=== PATIENT | male | born 1990 | race Hispanic/Latino ===

== ENCOUNTER 2025-06-26 14:08 | Emergency (ER) | payer SELFPAY ==
[2025-06-26] VITALS (11 sets, daily range): BP systolic 135–175; BP diastolic 69–99; PULSE 76–103; RESP 15–26; TEMP 36.6; O2SAT 97; BMI 25.8
--- NOTE | 2025-06-26 14:13 | ED_ITS ---
HPI - Extremity Injury (Upper) <Tyree Sherman MD - Last Filed: 06/26/25 15:19> General Chief Complaint: Trauma Stated Complaint: mod trauma hand vs table saw Time Seen by Provider: 06/26/25 15:02 History of Present Illness HPI narrative: This is a 34-year-old man who arrives as a modified trauma. He had a table saw injury to his left hand. Patient is right-handed previously healthy does not know when his last tetanus booster was. He has no allergies to medications and takes no regular medications. Injury occurred immediately prior to arrival. He was cutting gonzález a table saw. Injury involves his thumb index long and ring fingers. Last oral intake was at 12:30 p.m., he tells me that he does not have any sensation in his long finger. Related Data Allergies Allergy/AdvReac Type Severity Reaction Status Date / Time No Known Drug Allergies Allergy Verified 06/26/25 15:16 Review of Systems <Ba Eden MD - Last Filed: 07/08/25 08:25> Review of Systems Narrative: GENERAL: Negative chills, fatigue, malaise, fever, sweats. HEENT: Negative sinus pain, ear pain, sore throat RESPIRATORY: Negative dyspnea, cough CARDIOVASCULAR: Negative chest pain, palpitations GASTROINTESTINAL: Negative vomiting, nausea, abdominal pain : Negative dysuria, frequency, hematuria MUSCULOSKELETAL: Positive muscle or bony pain SKIN: Negative rash, skin lesions, positive skin wound NEUROLOGIC: Negative weakness, numbness ROS Unobtainable: All systems reviewed & are unremarkable except as noted in HPI and below Exam <Tyree Sherman MD - Last Filed: 06/26/25 15:19> Initial Vital Signs Initial Vital Signs: Vital Signs Temperature 97.9 F 06/26/25 14:10 Pulse Rate 98 H 06/26/25 14:10 Respiratory Rate 16 06/26/25 14:10 Blood Pressure 175/99 H 06/26/25 14:10 Pulse Oximetry 97 06/26/25 14:10 Oxygen Delivery Method Room Air 06/26/25 14:10 Patient arrives alert and oriented in obvious painful distress. Dressings were taken down off of his left hand there is moderate bleeding. There is a laceration crossing the ulnar aspect of the volar thumb tip. It is DP has intact light touch sensation and flexion-extension There is a laceration crossing the volar aspect of the index finger over the proximal phalanx. He has intact capillary refill light touch sensation flexion and extension. There is a laceration that is deep crossing the volar aspect at the proximal phalanx of his middle finger. It extends through the bone, there is visible tendon and bone on both sides of the laceration. He does not have light touch sensation in the long finger and he does not have flexion of the long finger. There is a laceration crossing the volar aspect of the ring finger. It is primarily on the ulnar side. He has intact capillary refill flexion-extension. <Ba Eden MD - Last Filed: 07/08/25 08:25> Initial Vital Signs Initial Vital Signs: Vital Signs Temperature 97.9 F 06/26/25 14:10 Pulse Rate 98 H 06/26/25 14:10 Respiratory Rate 16 06/26/25 14:10 Blood Pressure 175/99 H 06/26/25 14:10 Pulse Oximetry 97 06/26/25 14:10 Oxygen Delivery Method Room Air 06/26/25 14:10 Course <Tyree Sherman MD - Last Filed: 06/26/25 15:19> Orders Ordered: Discontinued Medications Bacitracin (Bacitracin Oint 0.9 Gm Pckt) 3 applic TOP NOW STA Stop: 06/26/25 17:45 Last Admin: 06/26/25 18:19 Dose: 3 applic Documented By: DARIAN Diphtheria/Tetanus/Acell Pertussis (Tet,Diph,Pertuss(Acell),Vac/Pf 0.5 Ml Syringe) 0.5 ml IM .ONCE ONE Stop: 06/26/25 14:14 Last Admin: 06/26/25 14:18 Dose: 0.5 ml Documented By: DARIAN Hydromorphone HCl (Hydromorphone 1 Mg/Ml Syringe) 1 mg IV NOW ONE Stop: 06/26/25 14:12 Last Admin: 06/26/25 14:20 Dose: 1 mg Documented By: DARIAN Hydromorphone HCl (Hydromorphone 1 Mg/Ml Syringe) 1 mg IV NOW ONE Stop: 06/26/25 14:50 Last Admin: 06/26/25 14:54 Dose: 1 mg Documented By: DARIAN(2) Hydromorphone HCl (Hydromorphone 1 Mg/Ml Syringe) 1 mg IV NOW ONE Stop: 06/26/25 17:29 Last Admin: 06/26/25 17:33 Dose: 1 mg Documented By: DARIAN Cefazolin Sodium 1 gm/ Sodium (Chloride) 100 mls @ 200 mls/hr IV NOW ONE Stop: 06/26/25 14:40 Last Infusion: 06/26/25 15:15 Dose: Infused Documented By: Admin: 06/26/25 14:19 Dose: 200 mls/hr Documented By: DARIAN Reevaluation(s) Reevaluation #1: At 3:00 p.m., care is transferred to Dr. Eden, we have calls out for transfer to a hand surgeon Vital Signs Vital signs: Vital Signs - 8 hr 06/26/25 14:10 06/26/25 14:21 06/26/25 14:30 Temperature 97.9 F Pulse Rate 98 H 86 101 H Respiratory Rate 16 16 16 Blood Pressure 175/99 H Pulse Oximetry 97 Oxygen Delivery Method Room Air 06/26/25 15:00 06/26/25 15:30 06/26/25 16:00 Temperature Pulse Rate 82 82 77 Respiratory Rate 22 26 H 15 Blood Pressure Pulse Oximetry Oxygen Delivery Method 06/26/25 16:26 06/26/25 16:26 06/26/25 16:30 Temperature Pulse Rate 76 Respiratory Rate 17 Blood Pressure 135/69 136/75 Pulse Oximetry Oxygen Delivery Method 06/26/25 16:30 06/26/25 17:00 06/26/25 17:00 Temperature Pulse Rate 89 93 H Respiratory Rate 23 17 Blood Pressure 147/84 H Pulse Oximetry Oxygen Delivery Method <Ba Eden MD - Last Filed: 07/08/25 08:25> Orders Ordered: Discontinued Medications Bacitracin (Bacitracin Oint 0.9 Gm Pckt) 3 applic TOP NOW STA Stop: 06/26/25 17:45 Last Admin: 06/26/25 18:19 Dose: 3 applic Documented By: DARIAN Diphtheria/Tetanus/Acell Pertussis (Tet,Diph,Pertuss(Acell),Vac/Pf 0.5 Ml Syringe) 0.5 ml IM .ONCE ONE Stop: 06/26/25 14:14 Last Admin: 06/26/25 14:18 Dose: 0.5 ml Documented By: DARIAN Hydromorphone HCl (Hydromorphone 1 Mg/Ml Syringe) 1 mg IV NOW ONE Stop: 06/26/25 14:12 Last Admin: 06/26/25 14:20 Dose: 1 mg Documented By: DARIAN Hydromorphone HCl (Hydromorphone 1 Mg/Ml Syringe) 1 mg IV NOW ONE Stop: 06/26/25 14:50 Last Admin: 06/26/25 14:54 Dose: 1 mg Documented By: DARIAN(2) Hydromorphone HCl (Hydromorphone 1 Mg/Ml Syringe) 1 mg IV NOW ONE Stop: 06/26/25 17:29 Last Admin: 06/26/25 17:33 Dose: 1 mg Documented By: DARIAN Cefazolin Sodium 1 gm/ Sodium (Chloride) 100 mls @ 200 mls/hr IV NOW ONE Stop: 06/26/25 14:40 Last Infusion: 06/26/25 15:15 Dose: Infused Documented By: Admin: 06/26/25 14:19 Dose: 200 mls/hr Documented By: DARIAN Vital Signs Vital signs: Vital Signs - 8 hr 06/26/25 14:10 06/26/25 14:21 06/26/25 14:30 Temperature 97.9 F Pulse Rate 98 H 86 101 H Respiratory Rate 16 16 16 Blood Pressure 175/99 H Pulse Oximetry 97 Oxygen Delivery Method Room Air 06/26/25 15:00 06/26/25 15:30 06/26/25 16:00 Temperature Pulse Rate 82 82 77 Respiratory Rate 22 26 H 15 Blood Pressure Pulse Oximetry Oxygen Delivery Method 06/26/25 16:26 06/26/25 16:26 06/26/25 16:30 Temperature Pulse Rate 76 Respiratory Rate 17 Blood Pressure 135/69 136/75 Pulse Oximetry Oxygen Delivery Method 06/26/25 16:30 06/26/25 17:00 06/26/25 17:00 Temperature Pulse Rate 89 93 H Respiratory Rate 23 17 Blood Pressure 147/84 H Pulse Oximetry Oxygen Delivery Method MDM - Extremity Injury (Upper) <Tyree Sherman MD - Last Filed: 06/26/25 15:19> Imaging Data Extremity x-ray #1: My Impression: Independently reviewed x-rays of the left hand, no acute bony abnormality, in fact the proximal phalanx of the 3rd finger is intact. Radiologist's Impression: [address] [address] XRay Report Signed Patient: Kirk Young MR#: [id number] : 1990 Acct:[id number] Age/Sex: 34 / M Date of Service: 06/26/25 Loc: ED Accession Number: [id number] Procedure: XR hand LT min 3V Ordering Provider: Tyree Sherman MD PROCEDURE: XR HAND LT MIN 3V INDICATIONS: hand trauma TECHNIQUE: 3 views of the hand acquired. COMPARISON: None. FINDINGS: Bones: No acute fractures or dislocations. Carpal bones are normally aligned. No suspicious bony lesions. Soft tissues: No suspicious soft tissue calcifications. Skin irregularity and are seen in the index and middle fingers. No radiopaque foreign body. IMPRESSION: Lacerations are seen at the 2nd and 3rd fingers. No radiopaque foreign body. No acute osseous fracture. Approved by: Cipriano Grier M.D. on 06/26/2025 at 14:27 <Ba Eden MD - Last Filed: 07/08/25 08:25> [facility] Narrative Medical decision making narrative: 3:[address] Eden: Sign-out from Dr. Sherman. Awaiting call back from [facility] in [place] for transfer. Patient has received antibiotics tetanus up-to-date has had pain medication wound has been irrigated.. On my re- evaluation, has brisk cap refills on the middle finger and thumb index ring finger and pinky. Unable to flex at the middle finger. 3:30 p.m. I spoke with [facility] Dr. Henriquez, you would like patient to follow up with Dr. Riley with hand, flexor tendon does not need to be repaired today 4:[address] Riley [place] [facility], he recommends patient being transferred to [facility] 4:10 p.m. I spoke with Orthopedics Dr. Guadalupe, on-call here, has seen patient and concerned about vascular compromise to the finger. Need to transferred [facility] 4:[address] Sharma spoke with Dr Guadalupe and myself, patient needs to be transferred now to her service at [facility]. 5:22 p.m.. That flight must be called because ground transport is not available for another 2 hours. Patient and family aware. He does understand need for transferred to [facility] now for urgent/emergent repair of his finger. Customer Experience Manager service was used. Dr Guadalupe reviewed with patient and family as well. Discharge Plan Departure [facility] Disposition: [facility] Clinical Impression: Injury of flexor tendon of hand Qualifiers: Encounter type: initial encounter Laterality: left Qualified Code(s): S66.802A - Unspecified injury of other specified muscles, fascia and tendons at wrist and hand level, left hand, initial encounter
[2025-06-26] MEDS: TET,DIPH,PERTUSS(ACELL),VAC/PF 0.5 ML SYRINGE IM (14:18)
--- NOTE | 2025-06-26 16:51 | P.HP_ITS ---
History of Present Illness History of Present Illness Date Patient Seen: 06/26/25 Time Patient Seen: 04:30 Date of Onset of Symptoms: 06/26/25 Chief complaint: mod trauma hand vs table saw Narrative: 34-year-old right-hand dominant male with left thumb index finger middle finger and ring finger lacerations after a table saw injury. He is unable to flex his middle finger. His sensation is decreased to the distal middle finger. He is unsure of his tetanus however it was updated in the emergency room. And he was given IV antibiotics. Physical exam reveals a well-developed well-nourished 34-year-old in no acute distress Evaluation of his left hand demonstrates that his middle finger is in full extension. He has a laceration through zone 2. There were no foreign bodies. There is pulsatile bleeding from the radial aspect and on the ulnar aspect his artery is visible and cut. He has 0/5 FDP and FDS flexion. His middle finger has poor cap refill and is cold to the touch. And has poor turgor. He has a 1 cm laceration over the tip of his thumb and 1 cm laceration at zone 2 of his index finger. And ring finger. He has 5/5 IP flexion at the thumb and EPL. He has 5/5 FDP and FDS to the index and ring finger and small finger. His sensation intact of the radial ulnar aspects of the index ring and small finger as well as the thumb. And he has brisk capillary refill in the fingers. Three views of the left hand demonstrate no evidence of fracture, dislocation or foreign body. His soft tissue lesions are visible. Meds Home Medications and Allergies Allergies Allergy/AdvReac Type Severity Reaction Status Date / Time No Known Drug Allergies Allergy Verified 06/26/25 15:16 Exam Vital Signs (past 8 hours): - 06/26/25 14:10 06/26/25 14:21 06/26/25 14:30 Temperature 97.9 F Pulse Rate 98 H 86 101 H Respiratory Rate 16 16 16 Blood Pressure 175/99 H Pulse Oximetry 97 Oxygen Delivery Method Room Air 06/26/25 15:00 Temperature Pulse Rate 82 Respiratory Rate 22 Blood Pressure Pulse Oximetry Oxygen Delivery Method Oxygen Delivery Method Room Air Assessment & Plan Assessment and plan (1) Injury of flexor tendon of hand: Qualifiers: Encounter type: initial encounter Laterality: left Qualified Code(s): S66.805T - Unspecified injury of other specified muscles, fascia and tendons at wrist and hand level, left hand, initial encounter Status: Acute (2) Digital blood vessel injury: Status: Acute Assessment & Plan narrative: I discussed with emergency room physician the importance of transferring the patient to a hand surgeon. The [facility] hand surgeon was paged and will accept the patient for concern for dysvascular middle finger. Time-Based Coding :: [TOTAL MINUTES] spent with patient and on the chart (including review of chart, obtaining history, exam, reviewing outside data, placing orders, documenting exam and treatment plan, and counseling patient) on [DATE]. [employer] Document charge(s): No
--- NOTE | 2025-06-26 17:16 | PC.NURSE ---
Patient's O2 sats on each finger taken at approximately 1620 due to request by the hand surgeon at [facility]. Thumb O2: 97% Index Finger O2: 96% Middle Finger O2: 96% Ring Finger O2: 98% Pinkie Finger O2: 98%
[2025-06-26] MEDS: BACITRACIN OINT 0.9 GM PCKT 3 APPLIC TOP (18:19)
--- NOTE | 2025-06-26 18:48 | PC.NURSE ---
Wet to dry bandage and bacitracin applied to L-hand per ED physician, prior to airlift pick-up.
== END 2025-06-26 18:20 | disposition short-term general hospital (02) ==
PROVIDERS: Emergency Provider Emergency Medicine
DX: S66.802A Unspecified injury of other specified muscles, fascia and tendons at wrist and hand level, left hand, initial encounter (principal); W27.0XXA Contact with workbench tool, initial encounter; Z23 Encounter for immunization
CPT/HCPCS: 73130; 90471; 96365; 96375; 96376; 99284; 90715; J0690; J1171